=== PATIENT | female | born 1990 | race Caucasian/White ===

== ENCOUNTER 2021-09-21 11:50 | Emergency (ER) | payer BC, SELFPAY ==
--- NOTE | ~2021-09-21 | XR_ITS ---
EXAMINATION: XR hand RT min 3V, XR wrist RT min 3V EXAM DATE: 09/21/2021 12:12 (accession [id number]), 09/21/2021 12:13 (accession [id number]) INDICATION: Initial encounter following injury, with pain of the right hand, 1st digit. TECHNIQUE: Right hand frontal, lateral and oblique projections obtained and reviewed. Right wrist fro ntal, frontal with ulnar deviation, oblique and lateral projections obtained and reviewed. There is no prior study for comparison. FINDINGS: Right metacarpal bones are unremarkable. Right wrist scapholunate joint space is maintain ed. There are no acute fractures or dislocations identified. There is no subcutaneous gas. The soft tissue is unremarkable. There are no radiopaque foreign bodies. IMPRESSION: No acute osseous findings. Reviewed, dictated and finalized at location B. [employer] IMPRESSION: No acute osseous findings. IMPRESSION: No acute osseous findings.
[2021-09-21 12:03] VITALS: BP 109/68; PULSE 76; RESP 16; TEMP 36.5; O2SAT 100
--- NOTE | 2021-09-21 13:27 | ED.UPPEXIN ---
HPI - Extremity Injury (Upper) General Chief Complaint: Extremity Injury, Upper Stated Complaint: R wrist/hand injury Time Seen by Provider: 09/21/21 13:27 Source: patient Mode of arrival: ambulatory Limitations: no limitations History of Present Illness HPI narrative: Rupali Crouch is a 30 yo female with a prior right wrist fracture and seizure disorder who [facility] after fall in bathtub a few days ago with with continuing pain and weakness in her right hand. She states that she is unable to open bottles of things like baby formula and has ongoing pain with movement Related Data Home Medications Medication Instructions Recorded Confirmed Keppra 09/21/21 Nenana 09/21/21 Vitamins 09/21/21 Allergies Allergy/AdvReac Type Severity Reaction Status Date / Time ketorolac [From Toradol] Allergy Hives Verified 09/21/21 12:54 Review of Systems Review of Systems: CONSTITUTIONAL: Denies fever, chills, sweats. EYES: Denies visual changes, redness, discharge. ENT: Denies rhinorrhea, congestion, sore throat, otalgia. CARDIOVASCULAR: Denies chest pain, palpitations, edema. RESPIRATORY: Denies dyspnea, wheezing, cough GASTROINTESTINAL: Denies abdominal pain, nausea, vomiting, diarrhea. GENITOURINARY: Denies dysuria, hematuria, abnormal discharge SKIN: Denies rash or itching. NEUROLOGIC: Denies numbness, or focal weakness. PSYCHIATRIC: Denies anxiety or depression. Right wrist pain PMFSH Past Medical History Medical History Fracture of radius near wrist Seizure disorder Social History Social History (Updated 09/21/21 @ 13:30 by Keena Rai CNP) Smoking status: Never smoker Alcohol intake: never Comments At time of signature, I agree with nursing past medical, surgical, social and family history. There is no relevant family history pertinent to the presenting complaint. Exam Narrative: GENERAL: This is a well-nourished, well-developed patient, in mild distress. HEAD: normocephalic, atraumatic. EYES: Sclera clear/white. Vision is grossly intact. EARS: External ears normal. Hearing grossly intact. NOSE: External nose normal without nasal discharge, nares without redness, no rhinorrhea. THROAT: Mucous membranes moist, NECK: Neck supple, non-tender CARDIOVASCULAR: Regular rate and rhythm without murmurs, gallops, or rubs. RESPIRATORY: Clear to auscultation. Breath sounds equal bilaterally. No wheezes, rales, or rhonchi. GASTROINTESTINAL: Abdomen soft, SKIN: warm, intact with no suspicious lesions or rash, good texture and turgor. NEURO: awake, alert, and oriented to person, place and time. There were no obvious focal neurologic abnormalities. Steady gait EXTREMITIES: Normal range of motion. The R/L wrist is with obvious asymmetry or deformity when compared to the R/L wrist. NO surface trauma, open wounds, swelling or obvious deformity. No overlying erythema or warmth. No bony crepitus or focal area of tender to palpate.Normal flexion/extension, ulnar/radial deviation. Motor/sensory function of ulnar, radial, median nerves intact. Ulnar and radial pulses intact. Negative Phalen's test/Tinel's sign. Negative Edin test. At the base of the thumb no ecchymosis but has weakness with movement BACK: Nontender without deformity Course Course Emergency Course: Patient fell in bathtub a few days ago and hit wrist where it had been fractured in the past states she has continued to have swelling at night and pain particular when she tries to open things like baby jars 3 shows no acute fracture right metacarpal bones are unremarkable scapholunate is maintained Patient to wear Bob wrap Continue use ibuprofen 600 mg every 6-8 hours for pain Follow-up with orthopod if wrist does not improve as may indicate tendon issue Vital Signs Vital signs: Vital Signs Temperature 97.7 F 09/21/21 12:03 Pulse Rate 76 09/21/21 12:03 Respiratory Rat
== END 2021-09-21 13:53 | disposition home or self-care (01) ==
PROVIDERS: Emergency Provider Nurse Practitioner; PCP Hospitalist
DX: S63.501A Unspecified sprain of right wrist, initial encounter (principal); S66.911A Strain of unspecified muscle, fascia and tendon at wrist and hand level, right hand, initial encounter; W19.XXXA Unspecified fall, initial encounter; G40.909 Epilepsy, unspecified, not intractable, without status epilepticus
CPT/HCPCS: 73110; 73130; 99203; G0463